=== PATIENT | female | born 1960 | race Caucasian/White ===

== ENCOUNTER 2019-06-20 09:13 | Emergency (ER) | payer BC ==
[~2019-06-20] VITALS: Ht 167.6 cm; Wt 47.7 kg
[2019-06-20 09:26] VITALS: Ht 167.6 cm; Wt 47.7 kg
[2019-06-20] MEDS ORDERED: ULTRAM50 MG PO (09:28)
[2019-06-20] MEDS ORDERED: LEVOTHYROXINE (09:29)
[2019-06-20] MEDS ORDERED: TIROSINT13 MCG (09:29)
[2019-06-20 10:05] LABS: HEMATOCRIT 47.7 % (36.0-48.0); HEMOGLOBIN 16.1 g/dL (12-16); MCH 31.4 pg (26.0-34.0); MCHC 33.8 g/dL (31.0-37.0); MCV 93.2 fL (80.0-100.0); MEAN PLATELET VOLUME 8.7 fL (7.4-10.4); PLATELET COUNT 447 10x3/uL (130-400); RBC 5.12 10x6/uL (4.00-5.40); RDW 12.9 % (11.5-14.5); WBC 9.8 10x3/uL (4.8-10.8)
[2019-06-20 10:08] LABS: APPEARANCE CLEAR (CLEAR); COLOR YELLOW (YELLOW)
[2019-06-20 10:09] LABS: BILIRUBIN NEGATIVE (NEGATIVE); GLUCOSE NEGATIVE (NEGATIVE); KETONE NEGATIVE (NEGATIVE); NITRITE NEGATIVE (NEGATIVE); PROTEIN NEGATIVE (NEGATIVE); SPECIFIC GRAVITY 1.015 (1.005-1.020)
[2019-06-20 10:13] LABS: ANION GAP 8.2 mmol/L (8-16); BILIRUBIN - TOTAL 0.37 mg/dL (0.2-1.3); CALCIUM 9.3 mg/dL (8.5-10.1); CARBON DIOXIDE 34.4 mmol/L (21.0-32.0); CREATININE - SERUM 0.9 mg/dL (0.6-1.3); POTASSIUM - SERUM 3.6 mmol/L (3.5-5.1); PROTEIN - SERUM 8.2 g/dL (6.4-8.2)
[2019-06-20 11:32] LABS: EOSINOPHILS 5 % (0-7); LYMPHOCYTES 56 % (15-50); MONOCYTES 6 % (2-11); NEUTROPHILS 33 % (40-80); PLATELET ESTIMATE NORMAL
[2019-06-20] MEDS ORDERED: TYLENOL W/CODEI1 TAB PO (13:32)
[2019-06-20] MEDS ORDERED: ZOFRAN ODT4 MG/UDTAB PO (13:32)
[2019-06-20 13:49] VITALS: BP 103/62
== END 2019-06-20 13:50 | disposition home or self-care (01) ==
LOC: D.ER 09:13
PROVIDERS: Emergency Medicine
DX: R63.4 Abnormal weight loss (principal); R10.9 Unspecified abdominal pain; F17.210 Nicotine dependence, cigarettes, uncomplicated

== ENCOUNTER 2019-08-20 20:49 | Emergency (ER) | payer BC ==
[~2019-08-20] VITALS: Ht 167.6 cm; Wt 54.5 kg
[~2019-08-20 20:49] MED LIST: LEVOTHYROXINE; TIROSINT13 MCG; TYLENOL W/CODEI1 TAB PO; ULTRAM50 MG PO; ZOFRAN ODT4 MG/UDTAB PO
[2019-08-20 20:57] VITALS: Ht 167.6 cm; Wt 54.5 kg
[2019-08-20] MEDS ORDERED: UNITHROID50 MCG PO (20:59)
[2019-08-20] MEDS ORDERED: XANAX2 MG PO (21:00)
[2019-08-20] MEDS ORDERED: OMEPRAZOLE40 MG PO (21:00)
[2019-08-20] MEDS ORDERED: GENTAK3.5 GM LEFT EYE (21:46)
[2019-08-20] MEDS ORDERED: ULTRAM50 MG PO (21:56)
[2019-08-20 22:20] VITALS: BP 118/81
== END 2019-08-20 22:20 | disposition home or self-care (01) ==
LOC: D.ER 20:49
DX: H16.002 Unspecified corneal ulcer, left eye (principal); E03.9 Hypothyroidism, unspecified; Z72.0 Tobacco use